=== PATIENT | male | born 1995 | race American Indian/Alaskan Native ===

== ENCOUNTER 2018-11-17 23:01 | Emergency (ER) | payer SELFPAY ==
[2018-11-17 23:16] VITALS: BP 135/76
== END 2018-11-18 02:15 | disposition left against medical advice (07) ==
LOC: ED 23:01
DX: T25.022A Burn of unspecified degree of left foot, initial encounter (principal); Z53.21 Procedure and treatment not carried out due to patient leaving prior to being seen by health care provider; X08.8XXA Exposure to other specified smoke, fire and flames, initial encounter; Y93.89 Activity, other specified; Y92.89 Other specified places as the place of occurrence of the external cause; Y99.8 Other external cause status

== ENCOUNTER 2018-12-15 00:37 | Emergency (ER) | payer SELFPAY ==
[2018-12-15 00:42] VITALS: BP 128/88
[2018-12-15] MEDS ORDERED: AMOXICILLIN/K CLAV 875/125MG TAB PO ONE (01:43)
[2018-12-15] MEDS ORDERED: HYDROcodone/ACETAMINOPHEN 5-325 MG TAB PO ONE (01:43)
[2018-12-15] MEDS ORDERED: IBUPROFEN 600 MG TAB PO ONE (01:43)
[2018-12-15] MEDS ORDERED: ONDANSETRON 4 MG ODT TAB PO ONE (01:44)
--- NOTE | 2018-12-15 01:48 | Emergency Department Report ---
ED General Adult HPI - General Chief complaint: Dental/Oral Stated complaint: TOOTH INFECTED/PAIN Source: patient Mode of arrival: Ambulatory Limitations: No Limitations - History of Present Illness Initial comments: Patient is a 23-year-old male with no past medical history who presents to the ED with complaint of acute onset persistent painful swollen bilateral mandibular premolar gum with severe pain and premolar and molar toothaches for the last 1 week, worse in the last 2 days. Patient also complains of headache. Patient denies dizziness, fever, chills, nausea, vomiting, sore throat, cough, chest pain or shortness of breath. MD Complaint: toothache, swollen gums -: Sudden, week(s) (1) Location: mouth Radiation: non-radiation Severity scale (0 -10): 6 Quality: aching, sharp Consistency: constant Improves with: none Associated Symptoms: denies other symptoms, headaches. denies: confusion, chest pain, cough, diaphoresis, fever/chills, loss of appetite, malaise, shortness of breath, syncope, weakness Treatments Prior to Arrival: none - Related Data Previous Rx's Medication Instructions Recorded Last Taken Type Ketorolac [Toradol] 10 mg PO Q8H PRN #20 tablet 12/15/18 Unknown Rx Penicillin V Potassium 500 mg PO Q6H #40 tablet 12/15/18 Unknown Rx traMADol [Ultram] 50 mg PO Q6HR PRN #12 tablet 12/15/18 Unknown Rx Allergies Allergy/AdvReac Type Severity Reaction Status Date / Time No Known Allergies Allergy Unverified 11/17/18 23:17 ED Review of Systems ROS: Stated complaint: TOOTH INFECTED/PAIN Other details as noted in HPI Constitutional: denies: chills, fever Eyes: denies: eye pain, eye discharge, vision change ENT: dental pain, other (Mouth and jaw pain). denies: ear pain, throat pain Respiratory: denies: cough, shortness of breath, wheezing Cardiovascular: denies: chest pain, palpitations Endocrine: no symptoms reported Gastrointestinal: denies: abdominal pain, nausea, diarrhea Genitourinary: denies: urgency, dysuria Musculoskeletal: denies: back pain, joint swelling, arthralgia Skin: denies: rash, lesions Neurological: denies: headache, weakness, paresthesias Psychiatric: denies: anxiety, depression Hematological/Lymphatic: denies: easy bleeding, easy bruising ED Past Medical Hx - Past Medical History Additional medical history: Hydrocele, Right Inguinal Hernia - Surgical History Past Surgical History?: No - Social History Smoking Status: Current Every Day Smoker Substance Use Type: Alcohol - Medications Home Medications: Home Medications Medication Instructions Recorded Confirmed Last Taken Type Ketorolac [Toradol] 10 mg PO Q8H PRN #20 tablet 12/15/18 Unknown Rx Penicillin V Potassium 500 mg PO Q6H #40 tablet 12/15/18 Unknown Rx traMADol [Ultram] 50 mg PO Q6HR PRN #12 tablet 12/15/18 Unknown Rx ED Physical Exam - General Limitations: No Limitations General appearance: alert, in no apparent distress - Head Head exam: Present: atraumatic, normocephalic, normal inspection - Eye Eye exam: Present: normal appearance, PERRL, EOMI Pupils: Present: normal accommodation - ENT ENT exam: Present: normal exam, mucous membranes moist, TM's normal bilaterally, normal external ear exam, other (swollen mandibular left and right premolar and molar gingiva; severe molar teeth tenderness) - Neck Neck exam: Present: normal inspection, full ROM. Absent: lymphadenopathy - Respiratory Respiratory exam: Present: normal lung sounds bilaterally. Absent: respiratory distress, wheezes, rales, rhonchi, chest wall tenderness, accessory muscle use, decreased breath sounds, prolonged expiratory - Cardiovascular Cardiovascular Exam: Present: regular rate, normal rhythm, normal heart sounds. Absent: systolic murmur, diastolic murmur, rubs, gallop - GI/Abdominal GI/Abdominal exam: Present: soft, normal bowel sounds. Absent: tenderness, guarding, rebound, hyperactive bowel sounds, hypoactive bowel sounds - Rectal Rectal exam: Present: deferred - Extremities Exam Extremities exam: Present: normal inspection, full ROM, normal capillary refill - Back Exam Back exam: Present: normal inspection, full ROM. Absent: muscle spasm, paraspinal tenderness - Neurological Exam Neurological exam: Present: alert, oriented X3, CN II-XII intact, normal gait, reflexes normal - Psychiatric Psychiatric exam: Present: normal affect, normal mood - Skin Skin exam: Present: warm, dry, intact, normal color. Absent: rash ED Course Vital Signs 12/15/18 12/15/18 00:41 01:56 Temperature 97.8 F Pulse Rate 65 Respiratory 18 18 Rate Blood Pressure 128/88 O2 Sat by Pulse 98 Oximetry - Reevaluation(s) Reevaluation #1: 12/15/18 02:21 This is a 23-year-old male who presented to the ED with complaint of acute onset persistent severe bilateral mandibular gingival swelling and pain, premolar and molar toothache for the last 1 week, worse in the last 2 days. In the ED, patient is alert and oriented 3 and is not in distress. Patient was treated for pain in the ED and discharged home on pain medication and antibiotics. Patient is advised to follow-up with his dentist or primary care physician in 7- 10 days for reevaluation. ED Medical Decision Making - Medical Decision Making This is a 23-year-old male who presented to the ED with complaint of acute onset persistent severe bilateral mandibular gingival swelling and pain, premolar and molar toothache for the last 1 week, worse in the last 2 days. In the ED, patient is alert and oriented 3 and is not in distress. Patient was treated for pain in the ED and discharged home on pain medication and antibiotics. Patient is advised to follow-up with his dentist or primary care physician in 7- 10 days for reevaluation. - Differential Diagnosis dental abscess; dental caries, acute gingivitis Critical care attestation.: If time is entered above; I have spent that time in minutes in the direct care of this critically ill patient, excluding procedure time. ED Disposition Clinical Impression: Dental abscess, Dental caries, Acute gingivitis Disposition: TO HOME OR SELFCARE Is pt being admited?: No Does the pt Need Aspirin: No Condition: Stable Instructions: Dental Abscess (ED), Dental Caries (ED), Gingivitis (ED) Additional Instructions: Take medication with food, drink plenty of fluids and follow-up with your primary care physician in 7-10 days for reevaluation. Return to the ED immediately if symptoms get worse. Prescriptions: Penicillin V Potassium 500 mg PO Q6H #40 tablet Ketorolac [Toradol] 10 mg PO Q8H PRN #20 tablet PRN Reason: Pain traMADol [Ultram] 50 mg PO Q6HR PRN #12 tablet PRN Reason: Pain Referrals: [facility] [Outside] - 3-5 Days Time of Disposition: 02:19 Print Language: GREENLAND[place]
== END 2018-12-15 02:29 | disposition home or self-care (01) ==
LOC: ED 00:37
DX: K04.7 Periapical abscess without sinus (principal); K02.9 Dental caries, unspecified; K05.00 Acute gingivitis, plaque induced; F17.200 Nicotine dependence, unspecified, uncomplicated; Z79.899 Other long term (current) drug therapy
CPT/HCPCS: Q0162